=== PATIENT | female | born 1950 | race Caucasian/White ===

== ENCOUNTER 2019-01-07 17:06 | Outpatient (REF) | payer MEDICARE, BC, SELFPAY ==
[2019-01-07 21:22] LABS: BUN 19 mg/dL (7-18); CREATININE 1.58 mg/dL (0.55-1.02); Chloride 100 mmol/L (98-107); Estimated GFR 32.33 (mL/min/1.73m2); Glucose 83 mg/dL (70-100); Potassium 4.4 mmol/L (3.5-5.1); Sodium 136 mmol/L (136-145)
== END 2019-01-07 17:26 ==
LOC: NCHCN 17:06
PROVIDERS: PCP Family Medicine; Visit Provider Nurse Practitioner Family
DX: N18.9 Chronic kidney disease, unspecified (principal)
CPT/HCPCS: 80048

== ENCOUNTER 2019-01-10 12:55 | Outpatient (REF) | payer MEDICARE, BC, SELFPAY ==
[2019-01-10 20:45] LABS: ALT 25 U/L (12-78); AST 19 U/L (15-37); Albumin 3.9 g/dL (3.4-5.0); Alkaline Phosphatase 79 U/L (46-116); Bilirubin, Total 0.4 mg/dL (0.2-1.0); Cholesterol 150 mg/dL (50-200); HDL Cholesterol 53 mg/dL (40-60); LDL CHOLESTEROL 77 mg/dL (<100); TSH 2.01 uIU/mL (0.358-3.74); Total Protein 7.5 g/dL (6.4-8.2); Triglyceride 118 mg/dL (30-150)
[2019-01-10 21:06] LABS: Bilirubin, Direct 0.12 mg/dL (0.00-0.20)
== END 2019-01-10 13:15 ==
LOC: NCHCN 12:55
PROVIDERS: PCP Family Medicine; Visit Provider Nurse Practitioner Family
DX: E78.5 Hyperlipidemia, unspecified (principal); N18.9 Chronic kidney disease, unspecified
CPT/HCPCS: 80061; 80076; 83721; 84443

== ENCOUNTER 2019-01-23 21:48 | Outpatient (REF) | payer MEDICARE, BC, SELFPAY ==
[2019-01-23 22:34] LABS: PROTEIN 6.3 mg/dL
[2019-01-23 22:43] LABS: COMMENT (LAB VIEW ONLY) 81.38 mg/dL; Prot/Crea Ur Ratio 0.07
[2019-01-23 22:50] LABS: Anion Gap 8.3 mmol/L (3-11); BUN 16 mg/dL (7-18); CO2 27.7 mmol/L (21.0-32.0); CREATININE 1.64 mg/dL (0.55-1.02); Calcium 9.3 mg/dL (8.5-10.1); Chloride 100 mmol/L (98-107); Estimated GFR 30.97 (mL/min/1.73m2); Glucose 93 mg/dL (70-100); Magnesium 1.7 mg/dL (1.8-2.4); Potassium 4.8 mmol/L (3.5-5.1); Sodium 136 mmol/L (136-145); Vitamin B12 514 pg/mL (193-986)
[2019-01-27 12:18] LABS: Parathyroid Hormone,Intact 54 pg/ml (19-88)
== END 2019-01-23 22:08 ==
LOC: NCHCN 21:48
PROVIDERS: PCP Family Medicine; Visit Provider Nurse Practitioner Family
DX: N18.9 Chronic kidney disease, unspecified (principal); D17.9 Benign lipomatous neoplasm, unspecified; F17.200 Nicotine dependence, unspecified, uncomplicated; E78.5 Hyperlipidemia, unspecified; Z51.81 Encounter for therapeutic drug level monitoring
CPT/HCPCS: 80048; 82565; 82607; 83735; 83970; 84156

== ENCOUNTER 2020-01-19 08:08 | Outpatient (REF) | payer MEDICARE, BC, SELFPAY ==
[2020-01-19 21:40] LABS: HCT 41.5 % (36.0-46.0); HGB 14.3 g/dL (12.0-15.5); Mean Corp. HGB Concentration 34.5 g/dL (32.0-36.0); Mean Corpuscular Hemoglobin 33.6 pg (27.0-33.0); Mean Corpuscular Volume 97.6 fL (80-95); Mean Platelet Volume 10.5 fL (8.0-11.0); Platelet Count 288 x1000/uL (130-400); RBC 4.25 m/cumm (4.00-5.20); RBC Distribution Width 13.3 % (11.7-14.6); White Blood Cell Count 7.97 k/cumm (4.4-10.8)
[2020-01-19 21:51] LABS: ALT 27 U/L (14-59); AST 21 U/L (15-37); Albumin 3.8 g/dL (3.4-5.0); Alkaline Phosphatase 76 U/L (46-116); Anion Gap 8.1 mmol/L (3-11); BUN 17 mg/dL (7-18); Bilirubin, Total 0.4 mg/dL (0.2-1.0); CO2 29.9 mmol/L (21.0-32.0); CREATININE 1.67 mg/dL (0.55-1.02); Calcium 8.5 mg/dL (8.5-10.1); Calculated LDL 75 mg/dL (<100); Chloride 100 mmol/L (98-107); Cholesterol 151 mg/dL (<200); Estimated GFR 30.24 (mL/min/1.73m2); Glucose 103 mg/dL (74-106); HDL Cholesterol 51 mg/dL (40-60); Potassium 4.3 mmol/L (3.5-5.1); Sodium 138 mmol/L (136-145); Total Protein 7.4 g/dL (6.4-8.2); Triglyceride 129 mg/dL (<150)
[2020-01-19 22:12] LABS: PROTEIN 11.9 mg/dL
[2020-01-19 22:21] LABS: Prot/Crea Ur Ratio 0.11
[2020-01-19 22:21] LABS: PHOSPHORUS 3.6 mg/dL (2.6-4.7)
== END 2020-01-19 08:28 ==
LOC: NCHCN 08:08
PROVIDERS: PCP Family Medicine; Visit Provider Nurse Practitioner Family
DX: I10 Essential (primary) hypertension (principal); N18.9 Chronic kidney disease, unspecified; I25.10 Atherosclerotic heart disease of native coronary artery without angina pectoris
CPT/HCPCS: 80053; 80061; 85027; 82565; 84100; 84156

== ENCOUNTER 2020-07-09 14:20 | Outpatient (REF) | payer MEDICARE, BC, SELFPAY ==
[2020-07-13 15:26] LABS: Patient Race White; SARS-CoV-2 RNA Undetected (Undetected); SARS-CoV-2 Specimen Source Nasal
== END 2020-07-09 14:40 ==
LOC: NCHCN 14:20
PROVIDERS: PCP Family Medicine; Visit Provider Nurse Practitioner Family
DX: R05 Cough (principal)
CPT/HCPCS: U0003

== ENCOUNTER 2020-11-25 15:32 | Outpatient (REF) | payer MEDICARE, BC, SELFPAY ==
[2020-11-25 13:49] LABS: ALT 27 U/L (14-59); AST 17 U/L (15-37); Albumin 3.8 g/dL (3.4-5.0); Alkaline Phosphatase 74 U/L (46-116); BUN 16 mg/dL (7-18); Bilirubin, Total 0.4 mg/dL (0.2-1.0); CREATININE 1.4 mg/dL (0.55-1.02); Calcium 8.9 mg/dL (8.5-10.1); Calculated LDL 59 mg/dL (<100); Chloride 101 mmol/L (98-107); Cholesterol 136 mg/dL (<200); Estimated GFR 36.96 (mL/min/1.73m2); Glucose 92 mg/dL (74-106); HDL Cholesterol 56 mg/dL (40-60); Potassium 4.3 mmol/L (3.5-5.1); Sodium 139 mmol/L (136-145); Total Protein 7.2 g/dL (6.4-8.2); Triglyceride 106 mg/dL (<150)
== END 2020-11-25 15:33 | disposition home or self-care (01) ==
LOC: NCHCN 15:32
PROVIDERS: PCP Family Medicine; Visit Provider Nurse Practitioner Family
DX: I10 Essential (primary) hypertension (principal); G60.9 Hereditary and idiopathic neuropathy, unspecified; F41.1 Generalized anxiety disorder; F17.200 Nicotine dependence, unspecified, uncomplicated; I25.5 Ischemic cardiomyopathy
CPT/HCPCS: 80053; 80061

== ENCOUNTER 2021-06-15 18:12 | Outpatient (REF) | payer MEDICARE, BC, SELFPAY ==
[2021-06-17 10:52] LABS: COVID-19 RT-PCR UVMMC Result Negative (Negative)
== END 2021-06-15 18:13 | disposition home or self-care (01) ==
LOC: NCHCN 18:12
PROVIDERS: PCP Family Medicine; Visit Provider Nurse Practitioner Community Health
DX: Z20.822 Contact with and (suspected) exposure to COVID-19 (principal); J02.9 Acute pharyngitis, unspecified
CPT/HCPCS: U0003; U0005

== ENCOUNTER 2021-11-23 18:25 | Outpatient (REF) | payer MEDICARE, BC, SELFPAY ==
[2021-11-23 21:55] LABS: HCT 37.9 % (36.0-46.0); MCH 33.5 pg (27.0-33.0); MCHC 34.3 % (32.0-36.0); MCV 97.7 fL (80-95); MPV 10.4 fL (8.0-11.0); Platelet Count 254 10^3/uL (130-400); RBC 3.88 10^6/uL (3.93-5.22); RDW 13.5 % (11.7-14.6); RDW-SD 48.2 fL; WBC 8.75 10^3/uL (4.4-10.8)
[2021-11-23 22:07] LABS: Anion Gap 9.8 mmol/L (3-11); BUN 24 mg/dL (7-18); CO2 27.2 mmol/L (21.0-32.0); CREATININE 1.6 mg/dL (0.55-1.02); Calcium 9.1 mg/dL (8.5-10.1); Chloride 99 mmol/L (98-107); Glucose 108 mg/dL (74-106); Magnesium 1.8 mg/dL (1.8-2.4); Potassium 4.1 mmol/L (3.5-5.1); Sodium 136 mmol/L (136-145)
== END 2021-11-23 18:26 | disposition home or self-care (01) ==
LOC: NCHCN 18:25
PROVIDERS: PCP Family Medicine; Visit Provider Nurse Practitioner Family
DX: I10 Essential (primary) hypertension (principal)
CPT/HCPCS: 80048; 85027; 83735

== ENCOUNTER 2022-06-06 20:02 | Outpatient (REF) | payer MEDICARE, BC, SELFPAY ==
[2022-06-06 14:50] LABS: Anion Gap 4.8 mmol/L (3-11); BUN 14 mg/dL (7-18); CO2 29.2 mmol/L (21.0-32.0); CREATININE 1.4 mg/dL (0.55-1.02); Calcium 8.9 mg/dL (8.5-10.1); Chloride 96 mmol/L (98-107); Estimated GFR 39.73 (mL/min/1.73m2); Glucose 101 mg/dL (74-106); Potassium 4.7 mmol/L (3.5-5.1); Sodium 130 mmol/L (136-145)
== END 2022-06-06 20:03 | disposition home or self-care (01) ==
LOC: NCHCN 20:02
PROVIDERS: PCP Family Medicine; Visit Provider Nurse Practitioner Family
DX: I10 Essential (primary) hypertension (principal); N18.9 Chronic kidney disease, unspecified
CPT/HCPCS: 80048

== ENCOUNTER 2022-12-04 19:02 | Outpatient (REF) | payer MEDICARE, BC, SELFPAY ==
--- OUTSIDE RECORDS SUMMARY | 2022-12-04 19:05 | XMS_ITS | CCD ---
Author Name Unknown Address [address] [place] [address] [phone] Organization Unknown Address [address] [place] [address] [id number] Care Team Providers Care Tub Washer Name Role Phone STEPHANIE SARGENT Attending Physician [phone] Vital Signs Unknown or Not Available. Allergies Allergy Code Allergy Type Reaction Status IV dye {Clinical monitoring unavailable} 0 Drug allergy whites of eyes turne Active Procedures Unknown or Not Available. History of Immunizations Unknown or Not Available. Problems Problem Code Start Date Resolved Date Status Myocardial infarct 42260999 06/07/2022 Resolv ed Anxiety 49015265 06/07/2022 Resolved Cataracts 48242922 06/07/2022 Resolved Results ROYA PERAZA DEYANENAX* - Brigido ect Date/Time: 11/08/2021 09:53 Test Name Code Test Result Test Units Test Ref Rang e Tier- 57947-8 PRE-OP N/A SARS COV2 RNA: 57629-2 NEGATIVE N/A REFERENCE RANGE: NEGAT Active Medications Unknown or Not Available. Medications Administered During Visit Unknown or Not Available. Encounters Encounter Diagnosis Diagnosis Code Start Date Pre-surgery testing 966100847 11/08/2021 Social History Smoking Status Code Start Date End Date Current every day smoker 135090993 09/24/1991 Patient Decision Aids Unknown or Not Available. Discharge Instructions You were admitted to [facility] on 11/08/2021 05:39 with a principal diagnosis of Encounter for preprocedural laboratory examination You had the following tests done:ROYA COVID RHEONIX* You were discharged from [facility] on 11/08/2021 05:39 Should you have any questions prior to discharge, please contact a member of your healthcare team. If you have left the hospital and have any questions, please contact your primary care physician. Chief Complaint and Reason For Visit Unknown or Not Available. Function Status Unknown or Not Available. Plan of Care Unknown or Not Available. Referral/Transition of Care Unknown or Not Available.
--- OUTSIDE RECORDS SUMMARY | 2022-12-04 19:05 | XMS_ITS | CCD ---
Author Name Unknown Address [address] [place] [address] [id number] Organization Unknown Address [address] [place], [place] [id number] Care Team Providers Care Educational Technologist Name Role Phone BEATRICE ALCOCER Attending Physician [phone] Vital Signs Unknown or Not Available. Allergies Allergy Code Allergy Type Reaction Status IV dye {Clinical monitoring unavailable} 0 Drug allergy whites of eyes turne Active Procedures Unknown or Not Available. History of Immunizations Unknown or Not Available. Problems Problem Code Start Date Resolved Date Status Myocardial infarct 91082761 06/07/2022 Resolv ed Anxiety 37090210 06/07/2022 Resolved Cataracts 15854433 06/07/2022 Resolved Results Unknown or Not Available. Active Medications Unknown or Not Available. Medications Administered During Visit Unknown or Not Available. Encounters Encounter Diagnosis Diagnosis Code Start Date Screening for malignant neoplasm of respiratory tract 424314435 12/20/2021 Social History Smoking Status Code Start Date End Date Current every day smoker 344901575 09/24/1991 Patient Decision Aids Unknown or Not Available. Discharge Instructions You were admitted to [facility] on 12/20/2021 14:54 with a principal diagnosis of Encounter for screening for malignant neoplasm of respiratory organs You were discharged from [facility] on 12/20/2021 14:54 Should you have any questions prior to discharge, please contact a member of your healthcare team. If you have left the hospital and have any questions, please contact your primary care physician. Chief Complaint and Reason For Visit Chief Complaint Date of Onset SMOKER, LDCT Function Status Unknown or Not Available. Plan of Care Unknown or Not Available. Referral/Transition of Care Unknown or Not Available.
--- OUTSIDE RECORDS SUMMARY | 2022-12-04 19:06 | XMS_ITS | CCD ---
Author Name Unknown Address [address] [place] [address] [phone] Organization Unknown Address [address] [place], [place] [id number] Care Team Providers Care Line Appliance Assembler Name Role Phone MAUDE NATHAN Attending Physician [phone] MAUDE NATHAN Rounding (Secondary) Physician [phone] Vital Signs Unknown or Not Available. Allergies Allergy Code Allergy Type Reaction Status IV dye {Clinical monitoring unavailable} 0 Drug allergy whites of eyes turne Active Procedures Unknown or Not Available. History of Immunizations Unknown or Not Available. Problems Problem Code Start Date Resolved Date Status Myocardial infarct 39634530 06/07/2022 Resolv ed Anxiety 51326077 06/07/2022 Resolved Cataracts 10419840 06/07/2022 Resolved Results Unknown or Not Available. Active Medications Unknown or Not Available. Medications Administered During Visit Unknown or Not Available. Encounters Encounter Diagnosis Diagnosis Code Start Date Cardiomyopathy, unspecified I429 09/2021 Social History Smoking Status Code Start Date End Date Current every day smoker 581390065 09/24/1991 Patient Decision Aids Unknown or Not Available. Discharge Instructions You were admitted to [facility] on 02/22/2022 12:32 with a principal diagnosis of Cardiomyopathy, unspecified You were discharged from [facility] on 02/22/2022 00:00 Should you have any questions prior to [...]
--- OUTSIDE RECORDS SUMMARY | 2022-12-04 19:06 | XMS_ITS | CCD ---
Author Name Unknown Address [address] [place] [address] [id number] Organization Unknown Address [address] [place], [place] [id number] Care Team Providers Care Loss Control Engineer Name Role Phone CARMELA SLAEH Attending Physician [phone] CARMELA SALEH Rounding (Secondary) Physician [phone] Vital Signs Unknown or Not Available. Allergies Allergy Code Allergy Type Reaction Status IV dye {Clinical monitoring unavailable} 0 Drug allergy whites of eyes turne Active Procedures Unknown or Not Available. History of Immunizations Unknown or Not Available. Problems Problem Code Start Date Resolved Date Status Myocardial infarct 02185764 06/07/2022 Resolv ed Anxiety 57612396 06/07/2022 Resolved Cataracts 04136533 06/07/2022 Resolved Results Unknown or Not Available. Active Medications Unknown or Not Available. Medications Administered During Visit Unknown or Not Available. Encounters Encounter Diagnosis Diagnosis Code Start Date Syncope and collapse R55 04/06/2022 Social History Smoking Status Code Start Date End Date Current every day smoker 613217627 09/24/1991 Patient Decision Aids Unknown or Not Available. Discharge Instructions You were admitted to [facility] on 04/06/2022 10:57 with a principal diagnosis of Syncope and collapse You were discharged from [facility] on 04/06/2022 00:00 Should you have any questions prior [...]
--- OUTSIDE RECORDS SUMMARY | 2022-12-04 19:06 | XMS_ITS | CCD ---
Author Name Unknown Address [address] [place] [address] [phone] Organization Unknown Address [address] [place], [place] [phone] Care Team Providers Care Concrete Pouring Supervisor Name Role Phone MAYE SKAGGS Attending Physician [phone] SHANTE MEJIA Er Physician [phone] ZOHREH Cervantes Registered Nurse [phone] Vital Signs Vital Sign Value Unit Date/Time Recent/Initial ? BMI (Body Mass Index) 28.89 kg/m^2 06/07/2022 12: 32 Initial VS Weight Measured 190 lbs 06/07/2022 12:32 Ini tial VS Height 68 in 06/07/2022 12:32 Initial VS BSA (Body Surface Area) 2.03 m^2 06/07/2022 1 2:32 Initial VS BP Systolic 120 mmHg 06/07/2022 12:32 Initial VS BP Diastolic 77 mmHg 06/07/2022 12:32 Initia l VS Respiratory Rate 17 bpm 06/07/2022 12:32 In itial VS Heart Rate 67 bpm 06/07/2022 12:32 Initial VS O2 % BldC Oximetry 95 % 06/07/2022 12:32 Initial VS Body Temperature 36.2 degrees 06/07/2022 12:32 In itial VS BP Systolic 127 mmHg 06/07/2022 13:54 Most Re cent VS BP Diastolic 73 mmHg 06/07/2022 13:54 Most R ecent VS Respiratory Rate 14 bpm 06/07/2022 13:[address] Recent VS Heart Rate 68 bpm 06/07/2022 13:54 Most Rec ent VS O2 % BldC Oximetry 98 % 06/07/2022 13:54 Most Recent VS Allergies Allergy Code Allergy Type Reaction Status IV dye {Clinical monitoring unavailable} 0 Drug allergy whites of eyes turne Active Procedures Unknown or Not Available. History of Immunizations Unknown or Not Available. Problems Problem Code Start Date Resolved Date Status Myocardial infarct 05104620 06/07/2022 Resolv ed Anxiety 02812306 06/07/2022 Resolved Cataracts 63005168 06/07/2022 Resolved Results COMPREHENSIVE METABOLIC PANE L (CMP) - Collect Date/Time: 06/07/2022 12:36 Test Name Code Test Result Test Units Test Ref Rang e GLUCOSE 2345-7 102 mg/dL L=70 H=116 BUN 3094-0 15 mg/dL L=6 H=25 CREATININE 2160-0 1.32 mg/dL L=0.51 H=0.95 SODIUM SERUM 2951-2 134 mmol/L L=136 H=145 POTASSIUM SERUM 2823-3 4.0 mmol/L L=3.4 H=5 .2 CHLORIDE SERUM 2075-0 97 mmol/L L=96 H=110 CARBON DIOXIDE (CO2) 2028-9 29 mmol/L L=22 H=34 ANION GAP 20090-4 7.9 mmol/L CALCIUM SERUM 43935-1 8.7 mg/dL L=8.2 H=10. 2 BILIRUBIN TOTAL 1975-2 0.3 mg/dL L=0.0 H=1 .3 ALK. PHOS. 6768-6 60 U/L L=46 H=116 SGOT (AST) 1920-8 16 U/L L=15 H=37 SGPT (ALT) 1742-6 20 U/L L=12 H=78 TOTAL PROTEIN 2885-2 7.5 gm/dL L=6.0 H=8.0 ALBUMIN 1751-7 3.5 gm/dL L=3.4 H=5.0 AGE 71 years eGFR (non-Afr.Amer.) 60260-6 39 mL/min eGFR (Afr-Turkish) 19461-0 48 mL/min MAGNESIUM SERUM* - Collect D ate/Time: 06/07/2022 12:36 Test Name Code Test Result Test Units Test Ref Rang e MAGNESIUM 61669-7 1.3 mg/dL L=1.8 H=2.4 TSH THYROID STIMULATING HORM ONE* - Collect Date/Time: 06/07/2022 12:36 Test Name Code Test Result Test Units Test Ref Rang e TSH 3014-8 1.606 uIU/mL L=0.360 H=3.74 0 CBC W/ DIFFERENTIAL* - [facility] ct Date/Time: 06/07/2022 12:36 Test Name Code Test Result Test Units Test Ref Rang e WBC 6690-2 8.90 th/cmm L=5.00 H=10.00 NEUT % 69.0 % L=40.0 H=80.0 LYMPH % 21.7 % L=10.0 H=50.0 MONO % 09304-4 7.6 % L=2.0 H=12.0 EOS % 0.7 % L=0.0 H=8.0 BASO % 0.6 % L=0.0 H=3.0 IG % 2514-8 0.4 % L=0.0 H=1.1 NRBC % 20371-6 0.0 % L=0.0 H=0.0 NEUT abs count 751-8 6.1 th/cmm L=1.6 H=8. 4 LYMPH abs count 731-0 1.9 th/cmm L=1.5 H=4 .0 MONO abs count 742-7 0.7 th/cmm L=0.2 H=1. 0 EOS abs count 711-2 0.1 th/cmm L=0.0 H=0.5 BASO abs count 704-7 0.1 th/cmm L=0.0 H=0. 2 IG abs count 23339-7 0.0 th/cmm L=0.0 H=0.1 NRBC abs count 28774-3 0.0 mil/cmm L=0.0 H=0. 0 RBC 789-8 4.08 mil/cmm L=3.90 H=5.40 HEMOGLOBIN 718-7 13.6 gm/dL L=12.0 H=16.0 HEMATOCRIT 4544-3 39 % L=37 H=47 MCV 787-2 96 fL L=82 H=92 MCH 785-6 33.3 pg L=27.0 H=31.0 MCHC 786-4 34.7 % L=32.0 H=36.0 RDW-SD 788-0 46.6 fL L=39.0 H=49.0 PLATELET COUNT 777-3 282 th/cmm L=150 H=45 0 ROYA COVID RHEONIX* - Brigido ect Date/Time: 06/07/2022 14:19 Test Name Code Test Result Test Units Test Ref Rang guilherme Perera- 39374-5 SYMPTOMS N/A SARS COV2 RNA: 56752-6 NEGATIVE N/A REFERENCE RANGE: NEGAT Active Medications Unknown or Not Available. Medications Administered During Visit Unknown or Not Available. Encounters Encounter Diagnosis Diagnosis Code Start Date Syncope and collapse R55 06/07/2022 Social History Smoking Status Code Start Date End Date Current every day smoker 724646409 09/24/1991 Patient Decision Aids Unknown or Not Available. Discharge Instructions You were admitted to [facility] on 06/07/2022 12:11 with a principal diagnosis of Syncope and collapse You had the following tests done:ROYA FALKONIX*CBC W/ DIFFERENTIAL*COMPREHENSIVE METABOLIC PANEL (CMP)MAGNESIUM SERUM*TSH THYROID STIMULATING HORMONE* You were discharged from [facility] on 06/07/2022 15:35 Should you have any questions prior to discharge, please contact a member of your healthcare team. If you have left the hospital and have any questions, please contact your primary care physician. Chief Complaint and Reason For Visit Chief Complaint Date of Onset DIZZINESS Function Status Unknown or Not Available. Plan of Care Unknown or Not Available. Referral/Transition of Care Unknown or Not Available.
--- OUTSIDE RECORDS SUMMARY | 2022-12-04 19:06 | XMS_ITS | CCD ---
Author Name Unknown Address [address] [place] [address] [phone] Organization Unknown Address [address] [place], [place] [phone] Care Team Providers Care Test Consultant Name Role Phone FELICITY VIERA Attending Physician [phone] Vital Signs Unknown or Not Available. Allergies Allergy Code Allergy Type Reaction Status IV dye {Clinical monitoring unavailable} 0 Drug allergy whites of eyes turne Active Procedures Unknown or Not Available. History of Immunizations Unknown or Not Available. Problems Problem Code Start Date Resolved Date Status Myocardial infarct 29109145 06/07/2022 Resolv ed Anxiety 77119542 06/07/2022 Resolved Cataracts 42462382 06/07/2022 Resolved Results Unknown or Not Available. Active Medications Unknown or Not Available. Medications Administered During Visit Unknown or Not Available. Encounters Encounter Diagnosis Diagnosis Code Start Date Abnormal electroencephalogram [EEG] R9401 05/23/2022 Social History Smoking Status Code Start Date End Date Current every day smoker 335424160 09/24/1991 Patient Decision Aids Unknown or Not Available. Discharge Instructions You were admitted to [facility] on 05/23/2022 10:25 with a principal diagnosis of Abnormal electroencephalogram [EEG] You were discharged from [facility] on 05/23/2022 10:25 Should you have any questions prior to [...]
--- OUTSIDE RECORDS SUMMARY | 2022-12-04 19:06 | XMS_ITS | CCD ---
Author Name Unknown Address [address] [place] [address] [phone] Organization Unknown Address [address] [place] [address] [id number] Care Team Providers Care Nitrating Acid Mixer Name Role Phone BAILEY ALAMO Attending Physician [phone] Vital Signs Vital Sign Value Unit Date/Time Recent/Initial ? BMI (Body Mass Index) 28.89 kg/m^2 06/14/2022 08: 54 Initial VS Weight Measured 190 lbs 06/14/2022 08:54 Ini tial VS Height 68 in 06/14/2022 08:54 Initial VS BSA (Body Surface Area) 2.03 m^2 06/14/2022 0 8:54 Initial VS Allergies Allergy Code Allergy Type Reaction Status IV dye {Clinical monitoring unavailable} 0 Drug allergy whites of eyes turne Active Procedures Procedure Code Procedure Type Date Extracapsular Cataract Remov al w/Insert IOL Prosthesis Manual/Mech w/o Endoscopic Cyclophotocoagulat 57494 CPT 06/21/2022 Anesthesia, Proc On Eye; Lens Surgery 36793 CPT 06/21/2022 History of Immunizations Unknown or Not Available. Problems Unknown or Not Available. Results Unknown or Not Available. Active Medications Unknown or Not Available. Medications Administered During Visit Unknown or Not Available. Encounters Encounter Diagnosis Diagnosis Code Start Date Unspecified age-related cataract H259 06/21/2022 Social History Smoking Status Code Start Date End Date Current every day smoker 957868074 09/24/1991 Patient Decision Aids Unknown or Not Available. Discharge Instructions You were admitted to [facility] on 06/21/2022 08:31 with a principal diagnosis of Unspecified age-related cataract You had the following procedures done:Extracapsular Cataract Removal w/Insert IOL Prosthesis Manual/Mech w/o Endoscopic CyclophotocoagulatAnesthesia, Proc On Eye; Lens Surgery You were discharged from [facility] on 06/21/2022 10:49 Should you have any questions prior to [...]
--- OUTSIDE RECORDS SUMMARY | 2022-12-04 19:06 | XMS_ITS | CCD ---
Author Name Unknown Address [address] [place] [address] [phone] Organization Unknown Address [address] [place], [place] [phone] Care Team Providers Care Trim Installer Name Role Phone JUAN PALMER Attending Physician [phone] JUAN PALMER Rounding (Secondary) Physician [phone] Vital Signs Unknown or Not Available. Allergies Allergy Code Allergy Type Reaction Status IV dye {Clinical monitoring unavailable} 0 Drug allergy whites of eyes turne Active Procedures Unknown or Not Available. History of Immunizations Unknown or Not Available. Problems Problem Code Start Date Resolved Date Status Myocardial infarct 43051430 06/07/2022 Resolv ed Anxiety 72270193 06/07/2022 Resolved Cataracts 29742310 06/07/2022 Resolved Results CRYSTALS POLARIZATION (SYNOV IAL FLUID)* - Collect Date/Time: 01/05/2022 14:55 Test Name Code Test Result Test Units Test Ref Rang e CRYSTAL EXAM: No Crystals Observed N/A CELL COUNT BODY FLUIDS (INCL UDES DIFF)* - Collect Date/Time: 01/05/2022 14:55 Test Name Code Test Result Test Units Test Ref Rang e TOTAL VOLUME 20.0 mL WBC total count 520 /cmm Neutrophils 02970-6 26 % Lymphocytes 20 % Monocytes 54 % Source- Knee N/A Appearance fluid CLEAR N/A GRAM STAIN* - Collect Date/T elizabeth: 01/05/2022 14:55 Test Name Code Test Result Test Units Test Ref Rang e SOURCE- Other N/A WBC s few N/A PREDOMINANT ORGANISM No bacteria seen N/A Active Medications Unknown or Not Available. Medications Administered During Visit Unknown or Not Available. 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 Discharge Instructions You were admitted to [facility] on 01/05/2022 09:43 with a principal diagnosis of Unilateral primary osteoarthritis, right knee You had the following tests done:CELL COUNT BODY FLUIDS (INCLUDES DIFF)*CRYSTALS POLARIZATION (SYNOVIAL FLUID)*GRAM STAIN* You were discharged from [facility] on 01/05/2022 00:00 Should you have any questions prior [...]
--- OUTSIDE RECORDS SUMMARY | 2022-12-04 19:07 | XMS_ITS | CCD ---
Author Name Unknown Address [address] [place] [address] [id number] Organization Unknown Address [address] [place], [place] [id number] Care Team Providers Care Occupational Health Nurse Name Role Phone DARIN KAISER Attending Physician [phone] Vital Signs Unknown or Not Available. Allergies [...] Encounters Encounter Diagnosis Diagnosis Code Start Date Cough 00776586 07/07/2022 Social History Smoking Status Code Start Date End Date Current every day smoker 849289765 09/24/1991 Patient Decision Aids Unknown or Not Available. Discharge Instructions You were admitted to [facility] on 07/07/2022 15:15 with a principal diagnosis of Cough, unspecified You were discharged from [facility] on 07/07/2022 15:15 Should you have any questions prior to [...]
--- OUTSIDE RECORDS SUMMARY | 2022-12-04 19:07 | XMS_ITS | CCD ---
Author Name Unknown Address [address] [place] [address] [id number] Organization Unknown Address [address] [place], [place] [phone] Care Team Providers Care Student Services Director Name Role Phone JUAN PALMER Attending Physician [phone] JUAN PALMERing (Secondary) Physician [phone] Vital Signs Unknown or Not Available. Allergies [...] Diagnosis Diagnosis Code Start Date Idiopathic osteoarthritis 368822747 2021 Social History Smoking Status Code Start Date End Date Current every day smoker 376378052 09/24/1991 Patient Decision Aids Unknown or Not Available. Discharge Instructions You were admitted to [facility] on 07/17/2022 08:23 with a principal diagnosis of Unilateral primary osteoarthritis, right knee You were discharged from [facility] on 07/17/2022 00:00 Should you have any questions prior [...]
--- OUTSIDE RECORDS SUMMARY | 2022-12-04 19:07 | XMS_ITS | CCD ---
Author Name Unknown Address [address] [place] [address] [id number] Organization Unknown Address [address] [place] [address] [id number] Care Team Providers Care Gas Attendant Name Role Phone BAILEY ALAMO Attending Physician [phone] Vital Signs Unknown or Not Available. Allergies Allergy Code Allergy Type Reaction Status IV dye {Clinical monitoring unavailable} 0 Drug allergy whites of eyes turne Active Procedures Unknown or Not Available. History of Immunizations Unknown or Not Available. Problems Unknown or Not Available. Results [facility] KARMEN RHEONIX* - Brigido ect Date/Time: 07/31/2022 10:33 Test Name Code Test Result Test Units Test Ref Rang e Tier- 32426-1 PRE-OP N/A SARS COV2 RNA: 81580-7 NEGATIVE N/A REFERENCE RANGE: NEGAT Active Medications Unknown or Not Available. Medications Administered During Visit Unknown or Not Available. Encounters Encounter Diagnosis Diagnosis Code Start Date Pre-surgery testing 069103754 07/31/2022 Social History Smoking Status Code Start Date End Date Current every day smoker 404644467 09/24/1991 Patient Decision Aids Unknown or Not Available. Discharge Instructions You were admitted to [facility] on 07/31/2022 21:04 with a principal diagnosis of Encounter for preprocedural laboratory examination You had the following tests done:ROYA COVID RHEONIX* You were discharged from [facility] on 07/31/2022 21:04 Should you have any questions prior to [...]
--- OUTSIDE RECORDS SUMMARY | 2022-12-04 19:07 | XMS_ITS | CCD ---
Author Name Unknown Address [address] [place] [address] [id number] Organization Unknown Address [address] [place] [address] [id number] Care Team Providers Care Tearoom Hostess Name Role Phone BAILEY ALAMO Attending Physician [phone] Vital Signs Unknown or Not Available. Allergies Allergy Code Allergy Type Reaction Status IV dye {Clinical monitoring unavailable} 0 Drug allergy whites of eyes turne Active Procedures Unknown or Not Available. History of Immunizations Unknown or Not Available. Problems Unknown or Not Available. Results [facility] KARMEN RHEONIX* - Brigido ect Date/Time: 06/19/2022 10:13 Test Name Code Test Result Test Units Test Ref Rang e Tier- 05600-5 PRE-OP N/A SARS COV2 RNA: 01276-3 NEGATIVE N/A REFERENCE RANGE: NEGAT Active Medications Unknown or Not Available. Medications Administered During Visit Unknown or Not Available. Encounters Encounter Diagnosis Diagnosis Code Start Date Pre-surgery testing 774649804 06/19/2022 Social History Smoking Status Code Start Date End Date Current every day smoker 392288186 09/24/1991 Patient Decision Aids Unknown or Not Available. Discharge Instructions You were admitted to [facility] on 06/19/2022 08:07 with a principal diagnosis of Encounter for preprocedural laboratory examination You had the following tests done:ROYA COVID RHEONIX* You were discharged from [facility] on 06/19/2022 08:07 Should you have any questions prior to [...]
--- OUTSIDE RECORDS SUMMARY | 2022-12-04 19:08 | XMS_ITS | CCD ---
Author Name Unknown Address [address] [place] [address] [id number] Organization Unknown Address [address] [place], [place] [phone] Care Team Providers Care Whiskey Regauger Name Role Phone FELICITY VIERA Attending Physician [phone] FELICITY VIERA Rounding (Secondary) Physician [phone] Vital Signs Unknown or Not Available. Allergies [...] Encounters Encounter Diagnosis Diagnosis Code Start Date Tremor 48207667 10/19/2022 Social History Smoking Status Code Start Date End Date Current every day smoker 655149029 09/24/1991 Patient Decision Aids Unknown or Not Available. Discharge Instructions You were admitted to [facility] on 10/19/2022 11:41 with a principal diagnosis of Tremor, unspecified You were discharged from [facility] on 10/19/2022 00:00 Should you have any questions prior [...]
[2022-12-04 22:07] LABS: Anion Gap 6.1 mmol/L (3-11); BUN 19 mg/dL (7-18); CO2 27.9 mmol/L (21.0-32.0); CREATININE 1.4 mg/dL (0.55-1.02); Calcium 8.6 mg/dL (8.5-10.1); Chloride 100 mmol/L (98-107); Estimated GFR 39.48 (mL/min/1.73m2); Glucose 83 mg/dL (74-106); Magnesium 1.9 mg/dL (1.8-2.4); Potassium 4.2 mmol/L (3.5-5.1); Sodium 134 mmol/L (136-145)
== END 2022-12-04 19:03 | disposition home or self-care (01) ==
LOC: LBN 19:02
PROVIDERS: PCP Family Medicine; Visit Provider Nurse Practitioner Family
DX: I10 Essential (primary) hypertension (principal); E83.42 Hypomagnesemia
CPT/HCPCS: 80048; 83735

== ENCOUNTER 2023-03-12 14:40 | Outpatient (REF) | payer MEDICARE, BC, SELFPAY ==
[2023-03-12 22:06] LABS: BUN 21 mg/dL (7-18); CREATININE 1.4 mg/dL (0.55-1.02); Chloride 101 mmol/L (98-107); Estimated GFR 39.48 (mL/min/1.73m2); Glucose 96 mg/dL (74-106); Potassium 4.7 mmol/L (3.5-5.1); Sodium 138 mmol/L (136-145); Uric Acid 5.3 mg/dL (2.6-6.0)
== END 2023-03-12 14:41 | disposition home or self-care (01) ==
LOC: NCHCN 14:40
PROVIDERS: PCP Family Medicine; Visit Provider Nurse Practitioner Family
DX: M25.572 Pain in left ankle and joints of left foot (principal)
CPT/HCPCS: 80048; 84550

== ENCOUNTER 2023-09-10 11:36 | Outpatient (REF) | payer MEDICARE, BC, SELFPAY ==
[2023-09-10 15:31] LABS: Anion Gap 7.9 mmol/L (3-11); BUN 20 mg/dL (7-18); CO2 29.1 mmol/L (21.0-32.0); CREATININE 1.5 mg/dL (0.55-1.02); Calcium 9.4 mg/dL (8.5-10.1); Calculated LDL 62 mg/dL (<100); Chloride 100 mmol/L (98-107); Cholesterol 148 mg/dL (<200); Estimated GFR 36.12 (mL/min/1.73m2); Glucose 103 mg/dL (74-106); HDL Cholesterol 65 mg/dL (40-60); Potassium 4.4 mmol/L (3.5-5.1); Sodium 137 mmol/L (136-145); Triglyceride 109 mg/dL (<150)
== END 2023-09-10 11:37 | disposition home or self-care (01) ==
LOC: NCHCN 11:36
PROVIDERS: PCP Family Medicine; Visit Provider Nurse Practitioner Family
DX: I10 Essential (primary) hypertension (principal); I25.10 Atherosclerotic heart disease of native coronary artery without angina pectoris
CPT/HCPCS: 80048; 80061

== ENCOUNTER 2024-03-06 12:24 | Outpatient (REF) | payer MEDICARE, BC, SELFPAY ==
[2024-03-06 15:02] LABS: HCT 41.5 % (36.0-46.0); HGB 14.3 g/dL (11.2-15.7); MCH 33.6 pg (27.0-33.0); MCHC 34.5 % (32.0-36.0); MCV 97 fL (80-95); MPV 10.5 fL (8.0-11.0); Platelet Count 272 10^3/uL (130-400); RBC 4.26 10^6/uL (3.93-5.22); RDW 13.5 % (11.7-14.6); RDW-SD 48.6 fL; WBC 5.27 10^3/uL (4.4-10.8)
[2024-03-06 15:19] LABS: Anion Gap 8.3 mmol/L (3-11); BUN 18 mg/dL (7-18); CO2 29.7 mmol/L (21.0-32.0); CREATININE 1.4 mg/dL (0.55-1.02); Calcium 9.3 mg/dL (8.5-10.1); Chloride 100 mmol/L (98-107); Estimated GFR 39.23 (mL/min/1.73m2); Glucose 96 mg/dL (74-106); Potassium 4.7 mmol/L (3.5-5.1); Sodium 138 mmol/L (136-145)
== END 2024-03-06 12:25 | disposition home or self-care (01) ==
LOC: NCHCN 12:24
PROVIDERS: PCP Family Medicine; Visit Provider Nurse Practitioner Family
DX: I10 Essential (primary) hypertension (principal); Z13.0 Encounter for screening for diseases of the blood and blood-forming organs and certain disorders involving the immune mechanism
CPT/HCPCS: 80048; 85027

== ENCOUNTER 2025-03-10 13:21 | Outpatient (REF) | payer MEDICARE, BC, SELFPAY ==
[2025-03-10 18:24] LABS: HCT 40.2 % (36.0-46.0); HGB 13.5 g/dL (11.2-15.7); MCH 32.4 pg (27.0-33.0); MCHC 33.6 % (32.0-36.0); MCV 96 fL (80-95); Platelet Count 254 10^3/uL (130-400); RBC 4.17 10^6/uL (3.93-5.22); RDW 13.2 % (11.7-14.6); RDW-SD 47.3 fL; WBC 5.31 10^3/uL (4.4-10.8)
[2025-03-10 18:35] LABS: Anion Gap 8.2 mmol/L (3-11); BUN 14 mg/dL (7-18); CO2 28.8 mmol/L (21.0-32.0); CREATININE 1.3 mg/dL (0.55-1.02); Chloride 98 mmol/L (98-107); Estimated GFR 42.62 (mL/min/1.73m2); Glucose 96 mg/dL (74-106); Potassium 4.9 mmol/L (3.5-5.1); Sodium 135 mmol/L (136-145)
== END 2025-03-10 13:22 | disposition home or self-care (01) ==
LOC: NCHCN 13:21
PROVIDERS: PCP Family Medicine; Visit Provider Nurse Practitioner Family
DX: Z00.00 Encounter for general adult medical examination without abnormal findings (principal)
CPT/HCPCS: 80048; 85027